=== PATIENT | male | born 1990 | race Two or more races ===

== ENCOUNTER 2019-08-12 07:59 | Emergency (ER) | payer OTHER ==
[~2019-08-12] VITALS: Ht 175.3 cm; Wt 88.0 kg
[2019-08-12] MEDS ORDERED: IBUPROFEN 600MG TABLET PO ONE (09:00)
[2019-08-12 11:06] VITALS: BP 122/78
== END 2019-08-12 11:06 | disposition home or self-care (01) ==
LOC: ER 07:59
DX: S80.12XA Contusion of left lower leg, initial encounter (principal); S80.11XA Contusion of right lower leg, initial encounter; R51 Headache; V49.88XA Car occupant (driver) (passenger) injured in other specified transport accidents, initial encounter; Y93.89 Activity, other specified; Y92.89 Other specified places as the place of occurrence of the external cause; Y99.8 Other external cause status
CPT/HCPCS: 73590; 99283